=== PATIENT | female | born 2000 | race Caucasian/White ===

== ENCOUNTER 2021-09-19 22:50 | Emergency (ER) | payer BC ==
[~2021-09-19] VITALS: Ht 172.7 cm; Wt 109.1 kg
[2021-09-19 22:59] VITALS: BP 123/87
[2021-09-19] MEDS ORDERED: ATARAX 10MG10 MG/TAB PO (23:05)
[2021-09-19] MEDS ORDERED: ZYRTEC5 MG PO (23:06)
[2021-09-19] MEDS ORDERED: SINGULAIR 110 MG/TAB PO (23:07)
[2021-09-19] MEDS ORDERED: PEPCID 20MG TAB20 MG PO (23:07)
[2021-09-19] MEDS ORDERED: SINEQUAN 1010 MG/CAP PO (23:07)
[2021-09-19 23:32] LABS: STREP SCREEN NEGATIVE
[2021-09-20 00:56] VITALS: PULSE 88; TEMP 100.2
== END 2021-09-20 00:58 | disposition home or self-care (01) ==
LOC: COL.ER 22:50
PROVIDERS: Nurse Practitioner
DX: B34.9 Viral infection, unspecified (principal); Z20.822 Contact with and (suspected) exposure to COVID-19; Z28.310 Unvaccinated for COVID-19
CPT/HCPCS: J1885; J7030

== ENCOUNTER 2021-10-24 19:01 | Emergency (ER) | payer BC ==
[~2021-10-24] VITALS: Ht 172.7 cm; Wt 112.7 kg
[~2021-10-24 19:01] MED LIST: ATARAX 10MG10 MG/TAB PO; PEPCID 20MG TAB20 MG PO; SINEQUAN 1010 MG/CAP PO; SINGULAIR 110 MG/TAB PO; ZYRTEC5 MG PO
[2021-10-24 19:12] VITALS: TEMP 97.9
[2021-10-24 23:04] VITALS: BP 105/78; PULSE 64
== END 2021-10-24 23:04 | disposition home or self-care (01) ==
LOC: COL.ER 19:01
DX: S99.921A Unspecified injury of right foot, initial encounter (principal); Z28.310 Unvaccinated for COVID-19; W18.40XA Slipping, tripping and stumbling without falling, unspecified, initial encounter; Y92.59 Other trade areas as the place of occurrence of the external cause; Y99.0 Civilian activity done for income or pay

== ENCOUNTER 2021-11-09 14:47 | Outpatient (RCR) | payer OTHER | END 2021-11-19 | disposition home or self-care (01) | LOC: WSOH | DX: M79.671 Pain in right foot (principal); W18.41XA Slipping, tripping and stumbling without falling due to stepping on object, initial encounter; Y99.0 Civilian activity done for income or pay; L50.8 Other urticaria; Z98.890 Other specified postprocedural states ==